=== PATIENT | male | born 1975 | race Caucasian/White ===

== ENCOUNTER → 2019-11-12 | Outpatient (CLI) | payer SELFPAY ==
[~2019-11-12] MED LIST: ACHD5005 PO; CEPH-507 PO; HOLD METFORMIN - RECEIVED CONTRAST 20 ML VIAL IV SCH; IOHEXOL 350 MG/ML 100 ML (OMNIPAQUE 350) VIAL IV ONE; NS 100 ML (IVPB) BAG IV ONE
--- NOTE | 2019-11-12 09:37 | Diagnostic Imaging Report ---
PROCEDURE: CT neck soft tissue with contrast. TECHNIQUE: Multiple contiguous axial images were obtained through the neck after the administration of contrast. Auto Exposure Controls were utilized during the CT exam to meet ALARA standards for radiation dose reduction. INDICATION: Palpable abnormality under right jawline. There is no evidence of abnormality at the skull base. Small mucous retention cyst or polyp is present in the right sphenoid sinus. There is metallic foreign object present within the medial left orbit which appears to be within the intraconal fat. No oropharynx or nasopharynx abnormality identified. Hypopharynx and larynx are also unremarkable. There is no evidence of parotid, submandibular or thyroid gland abnormality. Great vessels in the neck are unremarkable. Additional metallic foreign object seen in the right subclavian region. There is no evidence of pathologically enlarged adenopathy. No organized fluid collection is seen. There is no evidence of discrete mass. IMPRESSION: Metallic foreign bodies in left orbit and right subclavian region. Correlation with previous injuries would be useful. Otherwise, there is no evidence of acute abnormality or mass in the neck. Dictated by: Dictated on workstation # [id number]
== END ==
LOC: RAD 07:32
PROVIDERS: ATTEND Specialist
DX: D17.0 Benign lipomatous neoplasm of skin and subcutaneous tissue of head, face and neck (principal); S05.42XA Penetrating wound of orbit with or without foreign body, left eye, initial encounter
CPT/HCPCS: 70491